=== PATIENT | female | born 1970 | race Caucasian/White ===

== ENCOUNTER 2016-04-22 07:59 | Inpatient (IN) | payer OTHER ==
[~2016-04-22] VITALS: Ht 154.9 cm; Wt 71.8 kg
[2016-04-22] VITALS (8 sets, daily range): BP systolic 116–160; BP diastolic 73–102; PULSE 71–111; TEMP 36.5–37; O2SAT 93–100; Ht 154.9 cm; Wt 71.8 kg
[~2016-04-22 07:59] MED LIST: CALC500C70 PO; CEFAZOLIN 2000 MG/60 ML D5W IV SCH; CHOL2000 PO; CITA40TA12 PO; CLBPO15 TOP; CeleBREX 200 MG CAP PO SCH; HYDR-4330 PO; LACTATED RINGER'S 1000ML 1,000 ML IV SCH; LORA-741 PO; MULT-506 PO; OMEP20TA PO; PREG1CAP28 PO; PREGABALIN 75 MG CAP PO SCH
[2016-04-22] MEDS ORDERED: EpHEDrine SULFATE INJ 50 MG/ML AMP IV PRN (09:30)
[2016-04-22] MEDS ORDERED: HYDROmorphone INJ 1 MG/ML SYR IV PRN (09:30)
[2016-04-22] MEDS ORDERED: PROMETHAZINE HCL INJ 6.25 MG in SODIUM CHLORIDE 0.9% 50ML 50 ML IV PRN (09:30)
[2016-04-22] MEDS ORDERED: ONDANSETRON INJ 2 MG/ML 2 ML VIAL IV PRN ×2 (09:30→12:00)
[2016-04-22] MEDS ORDERED: ATROPINE SULFATE 0.1 MG/ML 5ML SYR IV PRN (09:30)
--- NOTE | 2016-04-22 09:32 | History and Physical ---
History & Physical Date Apr 22, 2016. Chief Complaint LBP and LLE pain History of Present Illness The patient is a 45 year old female with complaints of above that include numbness without weakness radiating in a dermatomal pattern. She has had longstanding complaints and failed outpatient treatment with ESIs and PT. MRI shows spinal stenosis L3-S1 with facet djd and DDD. She desires surgery due to impact on quality of life. Past Medical/Surgical History reflux LBP hyster chle gastric bypass Additional History Hepatic Disease: No Endocrine Disorder: No Kidney Disease: No Hypertension: No Heart Disease: No Bleeding Tendencies: No Infectious Diseases: No Allergies Coded Allergies: Acetaminophen (Verified Allergy, Mild, MIGRAINE AND HIVES, 04/22/16) Codeine (Verified Allergy, Mild, MIGRAINE AND HIVES, 04/22/16) Latex1 -Allergic Contact Dermititis (Verified Allergy, Mild, HIVES, ) Home Medications Scheduled Calcium/Vitamin D (Os-Chris 500 Plus D), 2 TAB PO BID Cholecalciferol (Vitamin D3), 1 CAP PO QAM Citalopram Hydrobromide (Celexa), 40 MG PO HS Multivitamin (Multivitamin), 1 TAB PO BID Omeprazole (Omeprazole), 1 TAB PO BID Pregabalin (Lyrica), 75 MG PO BID Scheduled PRN Clobetasol Propionate (Clobetasol Propionate), 1 APPLN TOP BID PRN for PSORIASIS Hydrocodone-Acetaminophen (Lortab 5-325 mg), 1 TAB PO Q6H PRN for Pain Lorazepam (Ativan), 0.5 MG PO Q6H PRN for Anxiety Physical Examination Skin: warm/dry Eyes: normal inspection ENT: normal ENT inspection, pharynx normal Head: normocephalic, atraumatic Neck: supple, trachea midline Respiratory/Chest: lungs clear, no respiratory distress Cardiovascular: regular rate, rhythm Back: normal inspection Extremities: normal inspection, normal range of motion Neurologic/Psych: no motor/sensory deficits, alert, normal reflexes, oriented x 3 Diagnosis L3-S1 DDD/stenosis/facet djd Plan of Treatment L3-S1 decompression/fusion
[2016-04-22] MEDS ORDERED: FENTANYL CITRATE INJ 50 MCG/1 ML 2 ML VIAL ONE (09:48)
[2016-04-22] MEDS ORDERED: MIDAZOLAM HCL 1 MG/ML 2ML VIAL ONE (09:48)
[2016-04-22] MEDS ORDERED: THROMBIN FOR SOLN 20000 UNIT KIT ONE ×2 (09:50→09:52)
[2016-04-22] MEDS ORDERED: HEPARIN SOD (PORCINE) 1000 UNIT/ML 10 ML VIAL ONE (09:51)
[2016-04-22] MEDS ORDERED: THROMBIN 5000 UNITS KIT ONE ×2 (09:51→10:09)
[2016-04-22] MEDS ORDERED: BUPIVACAINE/EPINEPHRINE 0.5% MPF 1:200,000 30 ML VIAL ONE (09:51)
[2016-04-22] MEDS ORDERED: BACITRACIN 50000 UNIT VIAL ONE (09:51)
[2016-04-22] MEDS ORDERED: HYDROmorphone INJ 2 MG/ML SYR/VIAL ONE ×2 (10:23→13:12)
[2016-04-22] MEDS ORDERED: DiphenhydrAMINE HCL 50 MG/ML VIAL ONE (10:35)
[2016-04-22] MEDS ORDERED: LARYING-O-JET KIT (LTA) EXT ONE ×2 (10:43)
[2016-04-22] MEDS ORDERED: GLYCOPYRROLATE INJ 0.2 MG/ML VIAL ONE (10:43)
[2016-04-22] MEDS ORDERED: DEXAMETHASONE SOD INJ 4 MG/ML VIAL ONE (10:43)
[2016-04-22] MEDS ORDERED: PROPOFOL IV EMULSION 10 MG/ML 20 ML VIAL IV ONE (10:43)
[2016-04-22] MEDS ORDERED: NEOSTIGMINE METHYLSULFATE 1 MG/ML 10ML VIAL ONE (10:43)
[2016-04-22] MEDS ORDERED: ROCURONIUM BROMIDE 10 MG/ML 5 ML VIAL ONE (10:43)
[2016-04-22] MEDS ORDERED: LIDOCAINE HCL 2% 2 ML VIAL (20MG/ML) ONE (10:43)
[2016-04-22] MEDS ORDERED: ONDANSETRON INJ 2 MG/ML 2 ML VIAL ONE (10:43)
[2016-04-22] MEDS ORDERED: EpHEDrine SULFATE INJ 50 MG/ML AMP ONE (10:52)
[2016-04-22] MEDS ORDERED: SODIUM CHLORIDE 0.9% 1000ML 1,000 ML IV SCH (11:56)
--- NOTE | 2016-04-22 11:56 | [facility] Post Operative Brief Note ---
Immediate Operative Summary Operative Date Apr 22, 2016. Pre-Operative Diagnosis L3-S1 degenerative disc disease/stenosis/facet degenerative joint disease Post-Operative Diagnosis L3-S1 degenerative disc disease/stenosis/facet degenerative joint disease Procedure(s) Performed L3-S1 Decompression and Instrumented Fusion; Interbody Fusion; Iliac Crest Bone Graft Infuse versus Bone Marrow Aspirate; Use of Arteriocyte Surgeon Dr. Greg Maria Marketing Specialist Surgeon(s) Nik De La Rosa PA-C Estimated Blood Loss 150ml Findings dict Specimens None per surgeon
[2016-04-22] MEDS ORDERED: PROMETHAZINE HCL INJ 12.5 MG in SODIUM CHLORIDE 0.9% 50ML 50 ML IV PRN (12:00)
[2016-04-22] MEDS ORDERED: LORAZEPAM INJ 0.5 MG in SYRINGE 0 ML IV PRN (12:00)
[2016-04-22] MEDS ORDERED: FLOSEAL HEMOSTATIC MATRIX 10ML TOP ONE (12:00)
[2016-04-22] MEDS ORDERED: hydrOXYzine HCL 25 MG TAB PO PRN (12:00)
[2016-04-22] MEDS ORDERED: FAMOTIDINE 20 MG TAB PO PRN (12:00)
[2016-04-22] MEDS ORDERED: METOCLOPRAMIDE HCL INJ 5 MG/ML 2 ML VIAL IV PRN (12:00)
[2016-04-22] MEDS ORDERED: ALUMINUM/MAGNESIUM SUSP 30 ML UDC PO PRN (12:00)
[2016-04-22] MEDS ORDERED: BISACODYL 10 MG SUPP PR PRN (12:00)
[2016-04-22] MEDS ORDERED: NALOXONE HCL 0.4 MG/1 ML VIAL/CARP IV PRN ×2 (12:00)
[2016-04-22] MEDS ORDERED: SOD PHOSPHATE/SOD BIPHOSPHATE ENEMA 132 ML BTL PR PRN (12:00)
[2016-04-22] MEDS ORDERED: MAGNESIUM HYDROXIDE SUSP 30 ML UDC PO PRN (12:00)
--- NOTE | 2016-04-22 12:02 | DIAGNOSTIC IMAGING REPORT ---
LUMBAR SPINE, INTRAOPERATIVE FLUOROSCOPY HISTORY: L3 S1 posterior decompression and fusion. FLUOROSCOPY TIME: 7 seconds. FINDINGS: Intraoperative fluoroscopy was provided for the lumbar spine. 2 fluoroscopic spot images were obtained. Posterior decompression fusion from L3 through S1 with pedicle screws and rods. The hardware appears intact. IMPRESSION: Fluoroscopy provided for a L3-S1 posterior decompression and fusion.. Electronically signed by: Abad Helms M.D. 04/22/2016 12:00 PM Dictated Date/Time: 04/22/2016 11:59 AM
[2016-04-22] MEDS ORDERED: OXYC-57 PO (12:04)
--- NOTE | 2016-04-22 12:05 | Discharge Instructions ---
Discharge Instructions Admission Reason for Admission: Lumbar Spinal Stenosis Discharge Discharge Diagnosis / Problem: Lumbar Stenosis Discharge Goals Goal(s): Decrease discomfort, Improve function, Increase independence Activity Recommendations Activity Limitations: as noted below Lifting Limitations: no more than 5 pounds Exercise/Sports Limitations: until after follow-up appointment May Resume Sexual Activity: after follow-up appointment Shower/Bathe: may shower/bathe in 3 days . Instructions / Follow-Up Instructions / Follow-Up ACTIVITY RECOMMENDATIONS: SELF CARE INSTRUCTIONS AFTER THORACIC/LUMBAR FUSIONS 1. You may walk to your tolerance. It is good exercise for your legs and back. Expect some back and intermittent leg aches and pains. 2. You may perform "counter-top" level activities (make a sandwich, lena with a project, etc.). 3. No bending or lifting of more than 10 pounds or back twisting of any nature (roll like a log when turning in bed). 4. You may ride in a car for 20-30 minutes at a time. No driving until after your first visit with your doctor. 5. Frequent changes of position and restricting sitting to 30 minutes at a time will help limit the amount of back spasms and stiffness you may experience. 6. You may discontinue the use of ambulatory aids (cane, crutches, etc.) once your strength and confidence allow. 7. You may windrower operator the shower and let water strike your incision when you arrive home at least once daily. Do not take a tub bath, sit in a hot tub or go into a swimming pool until after your first recheck in the office. SPECIAL CARE INSTRUCTIONS: VERY IMPORTANT TO READ AND REVIEW A. Your surgical incision has been closed with a cosmetic suture under the skin that will dissolve in about 6 weeks. In 14 days, you can use a pair of clean scissors and cut the suture that is left outside of the skin at the ends of your incision. 1. The small skin tapes can be removed 7 days after surgery if they have not fallen off by that point. 2. You may keep the wound open to air as much as possible to promote healing after post-op day number 5 unless told otherwise by your doctor. 3. If you think the wound looks like it is becoming infected (redness or worsening drainage) and/or you are experiencing fever, chill or worsening back pain and muscle spasms, contact the office so that we may evaluate you as soon as possible. B. Complications are uncommon, but please contact us if you have any signs or symptoms of: 1. wound infection (fever higher than 102.5 degrees F, redness, separation of wound, drainage, or increasing pain from the incision) 2. blood clots in legs (pain, swelling, redness and warmth in legs) 3. urinary tract infection (fever higher than 102.5 degrees F, burning upon urination or increased frequency of urination) 4. nerve problems (inability to walk on your toes or heels, numbness, loss of bowel or bladder control) 5. any other symptoms that concern you C. Please call the office at if you have any concerns or questions about your operation or recovery. D. No smoking! Smoking drastically decreases the chance of a solid fusion. E. Do not take any anti-inflammatory medications (Indocin, Advil, Motrin, Aspirin, Naprosyn, etc.) as these may inhibit the chance of a solid fusion. Tylenol is okay to take for pain. MANAGING PAIN AFTER SPINAL SURGERY 1. Narcotic medication is intended for short-term use and will be provided for surgical pain. Surgical pain usually lasts for a period of 4-6 weeks. Narcotic medication includes Percocet, Vicodin, Darvocet, Tylenol #3 or Lortab. 2. Longer-term pain is more appropriately treated with non-narcotic medication such as Tylenol ES. 3. Muscle spasm is not appropriately treated with narcotics. Muscle relaxers such as Soma, Flexeril or Skelaxin can be used along with Tylenol ES. 4. Remember that we all live with some "aches and pains". This is not unusual or uncommon after an injury or as we get older. a. Back pain is expected and may include muscle spasms for 4 to 6 weeks after surgery. The pain should gradually improve. If the pain worsens for no apparent reason, please contact the office. b. Intermittent leg pain may also be experienced and should not be concerned about unless it worsens for no apparent reason. If so, please contact the office. 5. We will provide appropriate medication within the normal guidelines of their prescribed use. We will also be very cautious and aware of potential abuse and extended duration of patients' medication needs. a. Pain medications are for your comfort and to assist with sleep and rest so that the tissue can heal. They are not provided in order to return to normal activity and should not be used through the day. To do so or worsening pain at night can result from ongoing tissue damage and development of tolerance to the prescribed medicine. 6. Please allow 2-3 days to process refills. Prescriptions will not be mailed but must be picked up at the office. FOLLOW UP VISIT: Keep your scheduled follow-up appointment. Any questions, please call the office at . Current Hospital Diet Patient's current hospital diet: Regular Diet Discharge Diet Recommended Diet: Regular Diet Procedures Procedures Performed: L3-S1 Decompression and Instrumented Fusion; Interbody Fusion; Iliac Crest Bone Graft Infuse versus Bone Marrow Aspirate; Use of Arteriocyte Pending Studies Studies pending at discharge: no Medical Emergencies . Who to Call and When: Medical Emergencies: If at any time you feel your situation is an emergency, please call 911 immediately. . Non-Emergent Contact Non-Emergency issues call your: Surgeon Call Non-Emergent contact if: temperature is above 101, your pain is not controlled, your pain is worsening, your pain is unusual for you, your pain is concerning you, wound has increased drainage, wound has increased redness, wound has increased pain, you have any medication questions . "Provider Documentation" section prepared by Nik De La Rosa. VTE Core Measure Inpt VTE Proph given/why not?: Junito Purcell
[2016-04-22] MEDS ORDERED: HYDROmorphone HCL 0.5MG/ML 50 ML CASSETTE ONE (12:21)
[2016-04-22] MEDS: FENTANYL CITRATE INJ 50 MCG/1 ML 2 ML VIAL IV PRN ×4 (12:26→12:50)
--- NOTE | 2016-04-22 13:02 | Anesthesiology Progress Note ---
Anesthesia Post Op Note Date & Time Apr 22, 2016 at 13:03 Vital Signs Pain Intensity: 4 Vital Signs Past 12 Hours Date Time Temp Pulse Resp B/P Pulse Ox O2 Delivery O2 Flow Rate FiO2 04/22/16 12:55 93 16 127/76 99 Nasal Cannula 4 04/22/16 12:45 100 16 122/75 98 Nasal Cannula 4 04/22/16 12:35 96 16 118/69 100 Mask 10 04/22/16 12:25 102 16 130/81 99 Mask 10 04/22/16 12:18 36.4 106 16 135/82 99 Mask 10 04/22/16 08:22 36.8 71 20 160/102 99 Room Air Notes Mental Status: alert / awake / arousable, participated in evaluation Pt Amnestic to Procedure: Yes Nausea / Vomiting: adequately controlled Pain: adequately controlled Airway Patency, RR, SpO2: stable & adequate BP & HR: stable & adequate Hydration State: stable & adequate Anesthetic Complications: no major complications apparent
[2016-04-22] MEDS: SODIUM CHLORIDE 0.9% 1000ML 1,000 ML IV SCH (14:49)
[2016-04-22] MEDS: HYDROmorphone HCL 0.5MG/ML 50 ML CASSETTE IV PRN ×3 (15:13→23:14)
[2016-04-22] MEDS ORDERED: NURSING VERBAL MED ORDER ONE (15:45)
[2016-04-22] MEDS ORDERED: ACETAMINOPHEN IV 1,000 MG in EMPTY BAG 0 ML IV ONE (17:30)
[2016-04-22] MEDS: DEXAMETHASONE INJ 6 MG in SYRINGE 0 ML IV SCH (17:52)
[2016-04-22] MEDS: CEFAZOLIN IV 1,000 MG in DEXTROSE 5% 50ML 50 ML IV SCH (18:25)
[2016-04-22] MEDS: CITALOPRAM 40 MG TAB PO SCH (21:01)
[2016-04-22] MEDS: DOCUSATE SODIUM/SENNA 50/8.6MG TAB PO SCH (21:02)
[2016-04-22] MEDS: PANTOprazole SOD 40 MG TAB PO SCH (21:02)
[2016-04-22] MEDS: PREGABALIN 75 MG CAP PO SCH (21:04)
[2016-04-22] MEDS ORDERED: ACETAMINOPHEN IV 1,000 MG in EMPTY BAG 0 ML IV SCH (22:00)
--- NOTE | 2016-04-22 22:56 | OPERATIVE REPORT ---
DATE OF OPERATION: 04/22/2016 PREOPERATIVE DIAGNOSES: 1. L3-L4, L4-L5 and L5-S1 disc degeneration. 2. L3-L4, L4-L5 and L5-S1 facet arthrosis. 3. L4-L5 and L5-S1 spinal stenosis. POSTOPERATIVE DIAGNOSES: Same. PROCEDURES: 1. L4 and L5 laminectomies with left L5-S1 facetectomy. 2. Segmental pedicle screw instrumentation -- bilateral L3, L4, L5 and S1 with K2M [place] pedicle screws. 3. Posterior lateral fusion L3-S1 -- bilateral with Infuse BMP on a collagen sponge, tricalcium phosphate, local bone, bone putty, bone marrow aspirate. 4. Right iliac crest bone marrow aspiration, stem cell concentration with Arteriocyte system, and application of bone graft. SURGEON: Dr. Greg Maria. INTRUSION ANALYST: Nik De La Rosa PA-C. Please note he participated in all portions of the procedure and was critical for performance of procedure, participated in positioning, prepping, draping, retraction and wound closure. ANESTHESIA: General endotracheal anesthesia. COMPLICATIONS: None. ESTIMATED BLOOD LOSS: Per anesthesia record. DESCRIPTION OF PROCEDURE: After identification of the patient and operative level, she was brought to the OR where she underwent induction of general anesthesia. She was then positioned prone on [facility] OR table with all bony prominences well padded. Care was taken to avoid pressure on the periorbital area. Lumbosacral area was sterilely prepped and draped in usual fashion. Antibiotics were administered. Timeout was performed. Level was confirmed. Skin incision was infiltrated with local anesthetic and skin incision was made from spinous process of L2 to the sacrum. I then exposed the posterior elements from L3 to the sacral ala, placed Gelpi retractors and confirmed level. Initially, we had discussed doing L4-S1, but due to the degenerative changes at L3-L4, I had considered preop for inclusion of L3. Intraoperatively, this was a good decision as facets were markedly degenerated at L3-L4. I then did midline decompression at L4 and L5 with laminectomy at each level and removal of ligamentum flavum at L4-L5 and L5-S1, removal of facet on the left at L5-S1 and medial facets at L4-L5. I completed decompression with Kerrisons, palpated the nerve roots were decompressed from L4-S1 bilaterally, and then placed pedicle screws bilaterally from L3 to the sacrum. I did skip the L5 pedicle screw on the right, I believe it was, due to difficulty introducing a gearshift probe here, I did place it on the contralateral side. All screws had good bony purchase and I checked position with fluoroscopy. After insertion of hardware, I aspirated bone marrow from the right iliac crest via separate stab incision with Jamshidi needle and concentrated with bone marrow system. I then applied this to bone graft dance professor and mixed it with morcellized local bone. I decorticated the transverse process from L3 to sacral ala, the facets from L3 to the sacrum with a high speed speedy bilaterally and then packed the facets and lateral gutters with the bone graft mixture as above. I lowered the Nish frame to restore lordosis, applied rods and end caps for final tightening as well as a crosslink. I did irrigate prior to bone grafting as well. I then confirmed hemostasis and closed in layered fashion over ELA drain. All sponge and needle counts were correct at the end of the case. I attest to the content of the Intraoperative Record and any orders documented therein. Any exceptio ns are noted below.
[2016-04-23] MEDS: ACETAMINOPHEN IV 1,000 MG in EMPTY BAG 0 ML IV SCH ×4 (00:27→22:29)
[2016-04-23] MEDS: DEXAMETHASONE INJ 6 MG in SYRINGE 0 ML IV SCH ×2 (01:46→10:15)
[2016-04-23] MEDS: CEFAZOLIN IV 1,000 MG in DEXTROSE 5% 50ML 50 ML IV SCH (01:46)
[2016-04-23 03:37] VITALS: BP 123/76; PULSE 77; TEMP 36.7; O2SAT 95
[2016-04-23] MEDS: SODIUM CHLORIDE 0.9% 1000ML 1,000 ML IV SCH (03:57)
[2016-04-23] MEDS ORDERED: HYDROmorphone INJ 0.5 MG/0.5 ML SYR IV PRN (06:00)
[2016-04-23] MEDS ORDERED: HYDROmorphone INJ 1 MG/ML SYR IV PRN (06:00)
[2016-04-23] MEDS ORDERED: DC PCA SCH (06:00)
[2016-04-23] MEDS ORDERED: NURSING DECISION MEDICATION ORDER SCH (06:30)
[2016-04-23 07:30] LABS: COMPLETE YES; HEMATOCRIT 33.9 % (37-47); IG% 0.2 %; LYMPH % 4.3 %; LYMPH ABS # 0.38 K/uL (1.2-3.4); MEAN CELL VOLUME 96.9 fL (80-100); MEAN CORPUSCULAR HEMOGLOBIN 32.9 pg (25-34); MEAN CORPUSCULAR HGB CONC 33.9 g/dl (32-36); MEAN PLATELET VOLUME 8.3 fL (7.4-10.4); MONO % 3.3 %; NEUT % 92.2 %; PLATELET COUNT 241 K/uL (130-400); WHITE BLOOD COUNT 8.86 K/uL (4.8-10.8)
[2016-04-23] MEDS: OXYCODONE HCL IR 5 MG TAB (IMMEDIATE RELEASE) PO PRN ×4 (07:46→20:25)
[2016-04-23 08:16] LABS: BUN/CREATININE RATIO 14.8 (10-20); CALCIUM 8.4 mg/dl (8.5-10.1); CREATININE 0.63 mg/dl (0.60-1.20); POTASSIUM 4.2 mmol/L (3.5-5.1)
--- NOTE | 2016-04-23 08:26 | Anesthesiology Progress Note ---
Anesthesia Post Op Note Date & Time Apr 23, 2016 at 08:25 Vital Signs Pain Intensity: 7.0 Vital Signs Past 12 Hours Date Time Temp Pulse Resp B/P Pulse Ox O2 Delivery O2 Flow Rate FiO2 04/23/16 03:37 36.7 77 16 123/76 95 Room Air 04/23/16 00:00 Nasal Cannula 2.0 04/22/16 23:37 36.7 85 16 125/78 93 Room Air Notes Mental Status: alert / awake / arousable, participated in evaluation Pt Amnestic to Procedure: Yes Nausea / Vomiting: adequately controlled Pain: adequately controlled Airway Patency, RR, SpO2: stable & adequate BP & HR: stable & adequate Hydration State: stable & adequate Anesthetic Complications: no major complications apparent
[2016-04-23] MEDS: LORAZEPAM 0.5 MG TAB PO PRN ×2 (08:53→17:14)
[2016-04-23] MEDS: PREGABALIN 75 MG CAP PO SCH ×2 (08:53→20:24)
[2016-04-23 08:54] VITALS: BP 186/72; PULSE 74; TEMP 36.8; O2SAT 98
[2016-04-23] MEDS: PANTOprazole SOD 40 MG TAB PO SCH ×2 (08:54→20:24)
--- NOTE | 2016-04-23 09:50 | Orthopedic Progress Note ---
Orthopedic Progress Note Date of Service Apr 23, 2016. Subjective Post OP Day: 1 Reports: feeling well, pain controlled w PO medications, Denies: SOB, calf pain , chest pain, complaints, light headedness, nausea / vomiting, using NAIL MACHINE OPERATOR Objective calves soft nontender, N/V intact, dressing C/D/I, A&O x3, hemovac drainage Date Time Temp Pulse Resp B/P Pulse Ox O2 Delivery O2 Flow Rate FiO2 04/23/16 08:54 36.8 74 16 186/72 98 Room Air 04/23/16 07:40 Room Air 04/23/16 03:37 36.7 77 16 123/76 95 Room Air 04/23/16 00:00 Nasal Cannula 2.0 04/22/16 23:37 36.7 85 16 125/78 93 Room Air 04/22/16 19:33 36.5 96 17 142/87 100 Nasal Cannula 4.0 04/22/16 16:58 36.7 99 17 136/82 99 Nasal Cannula 4.0 04/22/16 16:00 Nasal Cannula 4.0 04/22/16 15:51 36.9 111 17 143/85 97 Nasal Cannula 4.0 04/22/16 14:56 108 16 142/89 98 4.0 04/22/16 14:20 37.0 110 16 127/77 98 4.0 04/22/16 14:14 Nasal Cannula 4.0 04/22/16 13:50 36.5 94 20 116/73 99 Nasal Cannula 4.0 04/22/16 13:40 36.5 104 16 112/61 98 Nasal Cannula 4 04/22/16 13:25 111 16 125/75 98 Nasal Cannula 4 04/22/16 13:15 107 16 118/76 100 Nasal Cannula 4 04/22/16 13:05 109 16 119/74 100 Nasal Cannula 4 04/22/16 12:55 93 16 127/76 99 Nasal Cannula 4 04/22/16 12:45 100 16 122/75 98 Nasal Cannula 4 04/22/16 12:35 96 16 118/69 100 Mask 10 04/22/16 12:25 102 16 130/81 99 Mask 10 04/22/16 12:18 36.4 106 16 135/82 99 Mask 10 Laboratory Results 24 Hours: Test 04/23/16 06:56 White Blood Count 8.86 K/uL Red Blood Count 3.50 M/uL Hemoglobin 11.5 g/dL Hematocrit 33.9 % Mean Corpuscular Volume 96.9 fL Mean Corpuscular Hemoglobin 32.9 pg Mean Corpuscular Hemoglobin Concent 33.9 g/dl Platelet Count 241 K/uL Mean Platelet Volume 8.3 fL Neutrophils (%) (Auto) 92.2 % Lymphocytes (%) (Auto) 4.3 % Monocytes (%) (Auto) 3.3 % Eosinophils (%) (Auto) 0.0 % Basophils (%) (Auto) 0.0 % Neutrophils # (Auto) 8.17 K/uL Lymphocytes # (Auto) 0.38 K/uL Monocytes # (Auto) 0.29 K/uL Eosinophils # (Auto) 0.00 K/uL Basophils # (Auto) 0.00 K/uL Assessment & Plan Assessment: pain improved now with oral meds, preop leg pain better, hx of chronic vicodin use Discharge Planning Discharge Planning: home Pain Management: Oxy IR DVT Prophylaxis: TEDs, SCDs
[2016-04-23 11:29] VITALS: O2SAT 98
[2016-04-23 12:19] VITALS: BP 138/78; PULSE 72; TEMP 36.5; O2SAT 99
[2016-04-23 16:04] VITALS: BP 138/80; PULSE 81; TEMP 36.9; O2SAT 100
[2016-04-23] MEDS: CITALOPRAM 40 MG TAB PO SCH (21:11)
[2016-04-23] MEDS: DOCUSATE SODIUM/SENNA 50/8.6MG TAB PO SCH (21:11)
[2016-04-23 23:32] VITALS: BP 139/81; PULSE 63; TEMP 36.5; O2SAT 96
[2016-04-24] MEDS ORDERED: POLYETHYLENE (MIRALAX) 17 GM PACK PO SCH (06:00)
[2016-04-24] MEDS: ACETAMINOPHEN IV 1,000 MG in EMPTY BAG 0 ML IV SCH (06:11)
[2016-04-24] MEDS: OXYCODONE HCL IR 5 MG TAB (IMMEDIATE RELEASE) PO PRN ×2 (06:12→12:00)
[2016-04-24 06:42] VITALS: BP 162/99; PULSE 74; TEMP 36.3; O2SAT 100
[2016-04-24] MEDS: PREGABALIN 75 MG CAP PO SCH (08:52)
[2016-04-24] MEDS: PANTOprazole SOD 40 MG TAB PO SCH (09:11)
[2016-04-24 11:18] VITALS: BP 154/93; PULSE 73
--- NOTE | 2016-04-24 11:23 | Orthopedic Progress Note ---
Orthopedic Progress Note Date of Service Apr 24, 2016. Subjective Post OP Day: 2 Reports: feeling well, pain controlled w PO medications, Denies: SOB, calf pain , chest pain, complaints, light headedness, nausea / vomiting, using LAW TUTOR Objective calves soft nontender, N/V intact, dressing C/D/I, A&O x3, hemovac drainage Date Time Temp Pulse Resp B/P Pulse Ox O2 Delivery O2 Flow Rate FiO2 04/24/16 11:18 73 18 154/93 04/24/16 07:22 Room Air 04/24/16 06:42 36.3 74 16 162/99 100 Room Air 04/23/16 23:32 36.5 63 16 139/81 96 Room Air 04/23/16 20:00 Room Air 04/23/16 16:04 36.9 81 18 138/80 100 Room Air 04/23/16 12:19 36.5 72 18 138/78 99 Room Air 04/23/16 11:29 98 Room Air Assessment & Plan Assessment: pain improved now with oral meds, preop leg pain better, hx of chronic vicodin use Discharge Planning Discharge Planning: home Pain Management: Oxy IR DVT Prophylaxis: TEDs, SCDs
[2016-04-24 11:37] VITALS: BP 154/93; PULSE 73; TEMP 36.3; O2SAT 100
--- NOTE | 2016-05-04 10:00 | DISCHARGE SUMMARY ---
PRINCIPAL DIAGNOSIS: Includes L3-L4, L4-L5 and L5-S1 disc degeneration with facet arthrosis, L4-L5 and L5-S1 spinal stenosis. POSTOPERATIVE DIAGNOSIS: Same. PROCEDURE: L4 and L5 laminectomies with an L5-S1 facetectomy, pedicle screw instrumentations L3, 4, 5 and S1, posterolateral fusion L3-S1. SURGEON: Dr. Greg Maria. CELL PHONE REPAIR TECHNICIAN: Nik De La Rosa PA-C. HISTORY OF PRESENT ILLNESS: Please refer to EMR. HOSPITAL COURSE: On 04/22/2016 Laxmi was admitted to [facility] with the above diagnosis. She was taken to preoperative holding where she was identified, evaluated and cleared for surgical management. She was transported to the operating room, introduced with general endotracheal anesthesia. Sterile conditions were set and she successfully underwent the above procedure without complication or issue. She was awakened in stable and satisfactory condition, transported to postoperative recovery where her vital signs and pain were monitored and managed. She remained medically stable and was transported to the orthopedic floor, continued postoperative care. Throughout her stay, her vital signs, labs and pain were monitored and managed properly through physician direction without evidence of complication. She participated in physical therapy with noted progress. ELA output significantly diminished during her admission status. DVT and GI prophylactic measures were taken. She was evaluated on 04/24/2016 and indicated for return home. On this date, she was discharged from [facility]. DISPOSITION: Home. DISPOSITION CONDITION: Stable. NOTED COMPLICATIONS OR ISSUES: Zero. DISCHARGE INSTRUCTIONS: Please refer to EMR.
== END 2016-04-24 12:20 | disposition home or self-care (01) | DRG 460 ==
LOC: ENRESERVDT → ENRESERVTM → C.ACU 07:59 → C.3E 12:00
PROVIDERS: ADMIT Orthopaedic Surgery Orthopaedic Surgery of the Spine; ATTEND Orthopaedic Surgery Orthopaedic Surgery of the Spine
PROC: 07DR3ZZ Extraction of Iliac Bone Marrow, Percutaneous Approach (ICD-10-PCS; principal; 2016-04-22 10:00)
PROC: 0SG3071 Fusion of Lumbosacral Joint with Autologous Tissue Substitute, Posterior Approach, Posterior Column, Open Approach (ICD-10-PCS; principal; 2016-04-22 10:00)
PROC: 0SG1071 Fusion of 2 or more Lumbar Vertebral Joints with Autologous Tissue Substitute, Posterior Approach, Posterior Column, Open Approach (ICD-10-PCS; principal; 2016-04-22 10:00)
PROC: 3E0U0GB Introduction of Recombinant Bone Morphogenetic Protein into Joints, Open Approach (ICD-10-PCS; principal; 2016-04-22 10:00)
DX: M51.36 Other intervertebral disc degeneration, lumbar region (principal); M51.37 Other intervertebral disc degeneration, lumbosacral region; M47.896 Other spondylosis, lumbar region; M47.897 Other spondylosis, lumbosacral region; M48.06 Spinal stenosis, lumbar region; M48.07 Spinal stenosis, lumbosacral region; K21.9 Gastro-esophageal reflux disease without esophagitis; M19.90 Unspecified osteoarthritis, unspecified site; F41.9 Anxiety disorder, unspecified; F32.9 Major depressive disorder, single episode, unspecified; E66.9 Obesity, unspecified; Z68.30 Body mass index [BMI] 30.0-30.9, adult; Z98.84 Bariatric surgery status; Z87.891 Personal history of nicotine dependence; Z79.891 Long term (current) use of opiate analgesic; Z79.899 Other long term (current) drug therapy